=== PATIENT | male | born 1985 | race Asian ===

== ENCOUNTER 2016-12-22 20:37 | Emergency (ER) | payer OTHER ==
[~2016-12-22] VITALS: Ht 167.6 cm; Wt 56.7 kg
[2016-12-22 21:06] LABS: BASOPHIL % 0.8 % (0-2); PLATELET COUNT 326 x10^3mcL (130-400); RED CELL DISTRIBUTION WIDTH 13.2 % (11.5-14.5)
[2016-12-22 21:16] LABS: CARBON DIOXIDE 25.6 mmol/L (21-32); CHLORIDE SERUM 102 mmol/L (98-107); CREATININE SERUM 0.9 mg/dL (0.7-1.3); GFR1 > 60 mL/min; GLUCOSE SERUM 89 mg/dL (74-106); POTASSIUM SERUM 3.4 mmol/L (3.5-5.1); SODIUM SERUM 142 mmol/L (136-145)
[2016-12-22 21:20] LABS: ALBUMIN 4.2 g/dL (3.4-5.0); ALKALINE PHOSPHATASE 60 U/L (46-116); ALT/SGPT 24 U/L (16-63); AST/SGOT 36 U/L (15-37); BILIRUBIN TOTAL 0.54 mg/dL (0.20-1.00); CHOLESTEROL 181 mg/dL (<200); HDL CHOLESTEROL 79 mg/dL (40-60); PHOSPHOROUS 3.4 mg/dL (2.5-4.9); TOTAL PROTEIN, SERUM 7.4 g/dL (6.4-8.2); URIC ACID 6.5 mg/dL (3.5-7.2)
[2016-12-22 22:06] VITALS: BP 140/91
== END 2016-12-22 22:06 | disposition home or self-care (01) ==
LOC: ED 20:37
PROVIDERS: Emergency Medicine
DX: F10.129 Alcohol abuse with intoxication, unspecified (principal); R53.1 Weakness; F99 Mental disorder, not otherwise specified; F12.90 Cannabis use, unspecified, uncomplicated
CPT/HCPCS: 83880; J7030

== ENCOUNTER 2017-06-02 12:42 | Inpatient (IN) | payer OTHER ==
[~2017-06-02] VITALS: Ht 167.6 cm; Wt 55.3 kg
[2017-06-02 14:10] LABS: BASOPHIL % 0.6 % (0-2); PLATELET COUNT 308 x10^3mcL (130-400)
[2017-06-02 14:17] LABS: RED CELL DISTRIBUTION WIDTH 15.7 % (11.5-14.5)
[2017-06-02 14:24] LABS: CALCIUM 8.3 mg/dL (8.5-10.1); CARBON DIOXIDE 24.8 mmol/L (21-32); CHLORIDE SERUM 104 mmol/L (98-107); CREATININE SERUM 0.8 mg/dL (0.7-1.3); GFR1 > 60 mL/min; GLUCOSE SERUM 87 mg/dL (74-106); POTASSIUM SERUM 3.8 mmol/L (3.5-5.1); SODIUM SERUM 143 mmol/L (136-145)
[2017-06-02 14:27] LABS: microscopic required? NO
[2017-06-02 14:31] LABS: ALBUMIN 4.2 g/dL (3.4-5.0); ALKALINE PHOSPHATASE 70 U/L (46-116); ALT/SGPT 32 U/L (16-63); AST/SGOT 37 U/L (15-37); BILIRUBIN TOTAL 0.3 mg/dL (0.20-1.00); TOTAL PROTEIN, SERUM 7.6 g/dL (6.4-8.2)
[2017-06-02 14:38] LABS: urine erythrocyte NEGATIVE (NEGATIVE)
[2017-06-02 15:07] LABS: AMPHETAMINE QUAL UR NONE DETECTED (NEG <=1000)
[2017-06-02 19:49] VITALS: BP 139/99
[2017-06-02 19:51] LABS: T3 TOTAL 0.65 ng/mL
[2017-06-02 20:36] LABS: FREE T4 1.11 ng/dL (0.76-1.46); FREE THYROXINE INDEX 3.1 ug/dL (1.4-4.5); T4(THYROXINE) 7.8 ug/dL (4.7-13.3)
[2017-06-02 21:14] LABS: CHOLESTEROL/HDL RATIO 2.5
[2017-06-02 21:24] LABS: PHOSPHOROUS 3.5 mg/dL (2.5-4.9)
[2017-06-02 21:44] LABS: MAGNESIUM 2.2 mg/dL (1.8-2.4)
[2017-06-03] MEDS ORDERED: VALIUM5 MG PO (02:46)
== END 2017-06-03 00:30 | disposition left against medical advice (07) | DRG 816 ==
LOC: ED 12:42 → DU 17:17
PROVIDERS: Emergency Medicine; ADMIT Family Medicine
DX: T51.0X1A Toxic effect of ethanol, accidental (unintentional), initial encounter (principal); G92 Toxic encephalopathy; E83.51 Hypocalcemia; R45.851 Suicidal ideations; I10 Essential (primary) hypertension; E78.5 Hyperlipidemia, unspecified; F10.229 Alcohol dependence with intoxication, unspecified; F10.239 Alcohol dependence with withdrawal, unspecified; Y90.8 Blood alcohol level of 240 mg/100 ml or more; Y92.009 Unspecified place in unspecified non-institutional (private) residence as the place of occurrence of the external cause
CPT/HCPCS: 83880; 84439; G0480; J7030

== ENCOUNTER 2017-06-15 01:21 | Emergency (ER) | payer OTHER ==
[~2017-06-15] VITALS: Ht 167.6 cm; Wt 54.9 kg
[~2017-06-15 01:21] MED LIST: VALIUM5 MG PO
[2017-06-15 01:34] VITALS: Ht 167.6 cm; Wt 54.9 kg
[2017-06-15 04:03] VITALS: BP 140/101
== END 2017-06-15 04:03 | disposition left against medical advice (07) ==
LOC: ED 01:21
DX: Z53.21 Procedure and treatment not carried out due to patient leaving prior to being seen by health care provider (principal)

== ENCOUNTER 2017-07-12 11:37 | Emergency (ER) | payer OTHER ==
[~2017-07-12] VITALS: Ht 167.6 cm; Wt 56.7 kg
[2017-07-12 11:41] VITALS: Ht 167.6 cm; Wt 56.7 kg
[2017-07-12 12:34] LABS: BASOPHIL % 0.4 % (0-2); PLATELET COUNT 337 x10^3mcL (130-400); RED CELL DISTRIBUTION WIDTH 16.3 % (11.5-14.5)
[2017-07-12 12:40] LABS: CALCIUM 8.1 mg/dL (8.5-10.1); CARBON DIOXIDE 26.7 mmol/L (21-32); CHLORIDE SERUM 104 mmol/L (98-107); CREATININE SERUM 0.8 mg/dL (0.7-1.3); GFR1 > 60 mL/min; GLUCOSE SERUM 90 mg/dL (74-106); POTASSIUM SERUM 3.8 mmol/L (3.5-5.1); SODIUM SERUM 145 mmol/L (136-145)
[2017-07-12 12:47] LABS: ALKALINE PHOSPHATASE 70 U/L (46-116); ALT/SGPT 33 U/L (16-63); AST/SGOT 39 U/L (15-37); BILIRUBIN TOTAL 0.3 mg/dL (0.20-1.00); TOTAL PROTEIN, SERUM 7.5 g/dL (6.4-8.2)
[2017-07-12 15:17] LABS: AMPHETAMINE QUAL UR NONE DETECTED (NEG <=1000)
[2017-07-12 17:38] VITALS: BP 127/78
== END 2017-07-12 17:38 | disposition home or self-care (01) ==
LOC: ED 11:37 → EDBD 11:37 → ED 11:37
PROVIDERS: Emergency Medicine
DX: F10.129 Alcohol abuse with intoxication, unspecified (principal); I10 Essential (primary) hypertension; F41.9 Anxiety disorder, unspecified; Z88.8 Allergy status to other drugs, medicaments and biological substances
CPT/HCPCS: G0480

== ENCOUNTER 2017-08-28 01:49 | Emergency (ER) | payer OTHER ==
[~2017-08-28] VITALS: Ht 167.6 cm; Wt 56.7 kg
[2017-08-28 01:56] VITALS: Ht 167.6 cm; Wt 56.7 kg
[2017-08-28 02:42] LABS: BASOPHIL % 0.4 % (0-2); PLATELET COUNT 304 x10^3mcL (130-400)
[2017-08-28 02:44] LABS: RED CELL DISTRIBUTION WIDTH 14.8 % (11.5-14.5)
[2017-08-28 02:47] LABS: CALCIUM 8.2 mg/dL (8.5-10.1); CARBON DIOXIDE 27.7 mmol/L (21-32); CHLORIDE SERUM 108 mmol/L (98-107); CREATININE SERUM 0.9 mg/dL (0.7-1.3); GFR1 > 60 mL/min; GLUCOSE SERUM 92 mg/dL (74-106); POTASSIUM SERUM 3.9 mmol/L (3.5-5.1); SODIUM SERUM 146 mmol/L (136-145)
[2017-08-28 02:53] LABS: ALKALINE PHOSPHATASE 51 U/L (46-116); ALT/SGPT 25 U/L (16-63); AST/SGOT 42 U/L (15-37); BILIRUBIN TOTAL 0.29 mg/dL (0.20-1.00); TOTAL PROTEIN, SERUM 6.9 g/dL (6.4-8.2)
[2017-08-28 04:44] LABS: microscopic required? NO
[2017-08-28 05:02] LABS: urine erythrocyte NEGATIVE (NEGATIVE)
[2017-08-28 05:05] LABS: AMPHETAMINE QUAL UR NONE DETECTED (NEG <=1000)
[2017-08-28 11:13] VITALS: BP 126/84
== END 2017-08-28 15:07 | disposition home or self-care (01) ==
LOC: ED 01:49
PROVIDERS: Emergency Medicine
DX: R45.851 Suicidal ideations (principal); F32.9 Major depressive disorder, single episode, unspecified; F10.129 Alcohol abuse with intoxication, unspecified; F17.210 Nicotine dependence, cigarettes, uncomplicated; F41.9 Anxiety disorder, unspecified; Z86.59 Personal history of other mental and behavioral disorders
CPT/HCPCS: 36415; G0480

== ENCOUNTER 2017-10-03 16:31 | Emergency (ER) | payer OTHER ==
[~2017-10-03] VITALS: Ht 167.6 cm; Wt 57.1 kg
[2017-10-03 16:42] VITALS: Ht 167.6 cm; Wt 57.1 kg
[2017-10-03 17:11] LABS: BASOPHIL % 0.4 % (0-2); PLATELET COUNT 311 x10^3mcL (130-400); RED CELL DISTRIBUTION WIDTH 13.3 % (11.5-14.5)
[2017-10-03 17:18] LABS: CARBON DIOXIDE 27.7 mmol/L (21-32); CHLORIDE SERUM 103 mmol/L (98-107); CREATININE SERUM 0.9 mg/dL (0.7-1.3); GFR1 > 60 mL/min; GLUCOSE SERUM 149 mg/dL (74-106); POTASSIUM SERUM 3.9 mmol/L (3.5-5.1); SODIUM SERUM 141 mmol/L (136-145)
[2017-10-03 17:22] LABS: ALBUMIN 3.9 g/dL (3.4-5.0); ALKALINE PHOSPHATASE 52 U/L (46-116); ALT/SGPT 23 U/L (16-63); AST/SGOT 23 U/L (15-37); BILIRUBIN TOTAL 0.36 mg/dL (0.20-1.00); MAGNESIUM 2.2 mg/dL (1.8-2.4); TOTAL PROTEIN, SERUM 6.6 g/dL (6.4-8.2)
[2017-10-03 17:29] LABS: FREE T4 0.95 ng/dL (0.76-1.46); FREE THYROXINE INDEX 2.1 ug/dL (1.4-4.5); T4(THYROXINE) 5.7 ug/dL (4.7-13.3)
[2017-10-03 18:29] LABS: T3 TOTAL 0.59 ng/mL
[2017-10-03 19:54] VITALS: BP 111/71
== END 2017-10-03 20:00 | disposition home or self-care (01) ==
LOC: ED 16:31
PROVIDERS: Emergency Medicine
DX: F41.9 Anxiety disorder, unspecified (principal); F10.10 Alcohol abuse, uncomplicated; I10 Essential (primary) hypertension
CPT/HCPCS: 36415; 84439; G0480

== ENCOUNTER 2018-01-13 15:16 | Emergency (ER) | payer OTHER ==
[~2018-01-13] VITALS: Ht 167.6 cm; Wt 56.7 kg
[2018-01-13 15:22] VITALS: Ht 167.6 cm; Wt 56.7 kg
[2018-01-13 16:35] LABS: BASOPHIL % 0.7 % (0-2); PLATELET COUNT 281 x10^3mcL (130-400)
[2018-01-13 16:50] LABS: CALCIUM 8.2 mg/dL (8.5-10.1); CARBON DIOXIDE 24.9 mmol/L (21-32); CHLORIDE SERUM 102 mmol/L (98-107); CREATININE SERUM 0.7 mg/dL (0.7-1.3); GFR1 > 60 mL/min; GLUCOSE SERUM 91 mg/dL (74-106); POTASSIUM SERUM 3.9 mmol/L (3.5-5.1); SODIUM SERUM 144 mmol/L (136-145)
[2018-01-13 16:57] LABS: ALBUMIN 4.3 g/dL (3.4-5.0); ALKALINE PHOSPHATASE 82 U/L (46-116); ALT/SGPT 43 U/L (16-63); AST/SGOT 48 U/L (15-37); TOTAL PROTEIN, SERUM 7.6 g/dL (6.4-8.2)
[2018-01-13 19:14] LABS: AMPHETAMINE QUAL UR NONE DETECTED (See below)
[2018-01-13 20:45] VITALS: BP 142/99
== END 2018-01-13 20:45 | disposition home or self-care (01) ==
LOC: ED 15:16
DX: F10.129 Alcohol abuse with intoxication, unspecified (principal); F41.8 Other specified anxiety disorders; I10 Essential (primary) hypertension; Z88.8 Allergy status to other drugs, medicaments and biological substances
CPT/HCPCS: G0480; J2060; J7030

== ENCOUNTER 2018-02-05 04:19 | Emergency (ER) | payer OTHER ==
[~2018-02-05] VITALS: Ht 167.6 cm; Wt 56.7 kg
[2018-02-05 04:25] VITALS: Ht 167.6 cm; Wt 56.7 kg
[2018-02-05 05:14] VITALS: BP 134/95
== END 2018-02-05 05:50 | disposition home or self-care (01) ==
LOC: ED 04:19
DX: F10.20 Alcohol dependence, uncomplicated (principal); Z88.8 Allergy status to other drugs, medicaments and biological substances